=== PATIENT | male | born 1965 | race African-American/Black ===

== ENCOUNTER 2023-12-23 18:55 | Emergency (ER) | payer OTHER ==
[~2023-12-23] VITALS: Ht 177.8 cm; Wt 87.0 kg
[2023-12-23 18:58] VITALS: TEMP 98.6; O2SAT 99
[2023-12-23 19:20] VITALS: BP 156/97; PULSE 119; RESP 16
[2023-12-23] MEDS: LEVETIRACETAM 1000MG PREMIX 100 ML IV ONE (20:31)
[2023-12-23 20:58] LABS: BASOPHILS % 0.3 % (0.0-2.0); HEMOGLOBIN. 13.1 g/dL (14.0-18.0); LYMPHOCYTES % 3.1 % (20.0-50.0); MEAN CORPUSCULAR HEMOGLOBIN 35.6 pg (28.0-32.0); MEAN CORPUSCULAR HGB CONC 33.5 g/dL (31.0-37.0); MEAN CORPUSCULAR VOLUME 106.2 fL (80.0-94.0); MEAN PLATELET VOLUME 8.2 fl (7.4-10.4); MONOCYTES % 5.1 % (2.0-8.0); NEUTROPHILS % 91.5 % (40.0-76.0); PLATELET 137 x1000/uL (130-400); RED BLOOD CELL COUNT 3.67 mill/uL (4.7-6.1); RED CELL DISTRIBUTION WIDTH 15.2 % (11.6-14.6); WHITE BLOOD COUNT 11.5 x1000/uL (4.5-11.0)
[2023-12-23 21:05] LABS: DIFFERENTIAL COMMENT 1
[2023-12-23 21:20] LABS: CHLORIDE 103 mEq/L (98-107); POTASSIUM 3.7 mEq/L (3.5-5.1); SODIUM 137 mEq/L (136-145)
[2023-12-23 21:21] LABS: CALCIUM 9.4 mg/dL (8.7-10.4); CARBON DIOXIDE 20 mEq/L (21-32)
[2023-12-23 21:26] LABS: GLUCOSE 162 mg/dL (70-105); UREA NITROGEN BLOOD 6 mg/dL (9-23)
[2023-12-23 21:30] LABS: ETHANOL BLOOD < 10 mg/dL (<10)
== END 2023-12-23 22:35 | disposition home or self-care (01) ==
LOC: ER 18:55
DX: R56.9 Unspecified convulsions (principal); I10 Essential (primary) hypertension
CPT/HCPCS: 80048; 80320; 85025; 36415; 70450; 96365; 99285; J1953; G0480